=== PATIENT | male | born 1960 | race Two or more races ===

== ENCOUNTER → 2025-04-07 | Outpatient (CLI) | payer MEDICAID, SELFPAY ==
--- NOTE | 2025-04-07 14:41 | XR_ITS ---
Examination: Right knee 2 views Technique one AP lateral right knee 2 views Date and time: April 07, 2025 1447 hours Comparison April 04, 2021 INDICATIONS: Injury to the knee 2 days ago, knee pain. FINDINGS: Advanced narrowing medial joint space Moderate osteoarthritis lateral patellofemoral joints Small knee effusion No acute fracture IMPRESSION: No acute fracture
== END | disposition home or self-care (01) ==
DX: M17.11 Unilateral primary osteoarthritis, right knee (principal); M25.461 Effusion, right knee
CPT/HCPCS: 73560